=== PATIENT | female | born 1995 | race Caucasian/White ===

== ENCOUNTER 2022-06-03 08:25 | Outpatient (RCR) | payer OTHER, SELFPAY ==
[2022-05-14 12:02] VITALS: BP 102/60; PULSE 84
[2022-05-21 09:35] VITALS: BP 134/69; PULSE 94
[2022-05-28 14:03] VITALS: BP 130/64; PULSE 92
[2022-06-03 11:48] VITALS: BP 114/48; PULSE 90
== END 2022-07-12 14:51 | disposition home or self-care (01) ==
LOC: ANHOBOP 08:25
PROVIDERS: PCP Physician Assistant; Visit Provider Obstetrics & Gynecology
DX: O16.3 Unspecified maternal hypertension, third trimester (principal); Z3A.32 32 weeks gestation of pregnancy
CPT/HCPCS: 59025

== ENCOUNTER 2022-06-10 10:19 | Outpatient (CLI) | payer OTHER, SELFPAY ==
[2022-06-10 10:34] VITALS: BP 130/69; PULSE 96
[2022-06-10 10:46] VITALS: BP 115/61; PULSE 90
[2022-06-10 10:53] LABS: Basophils Percent Auto 0.2 % (0.2-1.2); Eosinophils Absolute Auto 0.1 K/mm3 (0-0.3); Eosinophils Percent Auto 0.6 % (0-4.4); Hematocrit 33.8 % (37.0-47.0); Hemoglobin 10.9 g/dL (12.0-15.0); Immature Granulocyte Absolute 0.05 K/mm3 (0.00-0.031); Immature Granulocyte Percent A 0.5 % (0-0.5); Lymphocytes Absolute Auto 2.01 K/mm3 (0.9-3.2); Mean Corpuscular HGB Conc 32.2 g/dl (32-36); Mean Corpuscular Hemoglobin 28.1 pg (26-34); Mean Corpuscular Volume 87.1 fl (80-100); Mean Platelet Volume 10.4 fl (7.4-10.4); Monocytes Absolute Auto 0.6 K/mm3 (0.1-0.6); Monocytes Percent Auto 5.8 % (2.6-8.5); Neutrophils Absolute Auto 7.3 K/mm3 (1.3-6.7); Neutrophils Percent Auto 72.9 % (45.5-73.1); Platelet Count Result 232 k/mm3 (150-375); Red Blood Count 3.88 M/mm3 (4.2-5.4); Red Cell Distribution Width 14.1 % (11.5-14.5)
[2022-06-10 11:02] LABS: Alanine Aminotransferase 15 U/L (6-35); Albumin Level 3.4 g/dL (3.5-5.1); Alkaline Phosphatase 106 U/L (38-126); Anion Gap 6 mmol/L (8-16); Aspartate Amino Transferase 15 U/L (14-36); Bilirubin,Total 0.3 mg/dL (0.2-1.3); Blood Urea Nitrogen 7 mg/dL (7-17); Calcium 8.7 mg/dL (8.4-10.2); Carbon Dioxide 23 mmol/L (22-30); Chloride 106 mmol/L (98-107); Estimated Glomerular Filt Rate > 60; Glucose 109 mg/dL (65-110); Potassium 3.8 mmol/L (3.4-5.0); Sodium 135 mmol/L (137-145); Uric Acid 5.3 mg/dL (2.5-7.5)
[2022-06-10 11:32] LABS: Appearance Urine Clear (Clear); Bilirubin Urine Negative (Negative); Color Urine Yellow (Yellow); Glucose Urine UA Negative (Negative); Ketones Urine Negative (Negative); Leukocyte Esterase Ur Negative LEU/UL (NEGATIVE); Nitrate Urine Negative (Negative); Protein Urine Negative (Negative); Specific Grav Ur 1.015 (1.001-1.035); Urobilinogen Urine 0.2 mg/dL (<2.0)
[2022-06-10 11:36] LABS: Creatinine Urine 45.4 mg/dL; Total Protein Urine Random 10 mg/dL; Ur Ttl Prot Creatinine Ratio 0.22 mg/mg (0-0.20)
[2022-06-10 11:40] LABS: RBC Urine 0-2 /hpf (0-2); Squamous Epithelial Cell Urine Occasional /hpf (Few); WBC Urine 0-3 /hpf (0-3)
[2022-06-10 11:47] LABS: Add Urine Microscopic? YES; Blood Urine Trace-Intact (Negative)
[2022-06-10 12:02] VITALS: BP 115/61; PULSE 96
[2022-06-10 12:12] VITALS: BP 130/69; PULSE 96
--- NOTE | 2022-06-10 12:31 | PC.NURSE ---
1019-Pt presented to L&D stating she had an episode yesterday that lasted a few seconds of seeing spots and another episode this morning. Pt states she has chtn. Orders received to draw [facility] labs and obtain nst.may discharge home if labs normal,bp wnl, nst reactive.
--- NOTE | 2022-06-10 18:17 | PM.OBTRLD ---
OB - Triage/Final Diagnosis Visit Information Date of evaluation: 06/10/22 Reason for evaluation: other ( headache) Comments/Additional reasons for admission: I have assessed the risk for this patient, Luther Sawyer, and determined that she would benefit from observation care. Evaluation Laboratory results: Laboratory Tests 06/10/22 06/10/22 06/10/22 10:43 10:43 10:43 WBC 10.0 RBC 3.88 L Hgb 10.9 L Hct 33.8 L MCV 87.1 MCH 28.1 MCHC 32.2 RDW 14.1 Plt Count 232 MPV 10.4 Immature Gran % (Auto) 0.5 Neut % (Auto) 72.9 Lymph % (Auto) 20.0 [place] % (Auto) 5.8 Eos % (Auto) 0.6 Baso % (Auto) 0.2 Lymph # (Auto) 2.01 [place] # (Auto) 0.6 Eos # (Auto) 0.1 Baso # (Auto) 0.0 Abs Immat Gran (auto) 0.05 H Absolute Neuts (auto) 7.3 H Absolute Nucleated RBC 0.0 Nucleated RBC % 0.0 Sodium Potassium Chloride Carbon Dioxide Anion Gap BUN Creatinine Estim Creat Clear Calc Estimated GFR Glucose Uric Acid Calcium Total Bilirubin AST ALT Alkaline Phosphatase Total Protein Albumin Urine Color Yellow Urine Appearance Clear Urine pH 7.0 Ur Specific [place] 1.015 Urine Protein Negative Urine Glucose (UA) Negative Urine Ketones Negative Ur Blood (Man) Trace-intact Urine Nitrate Negative Urine Bilirubin Negative Urine Urobilinogen 0.2 Ur Leukocyte Esterase Negative Urine RBC 0-2 Urine WBC 0-3 Ur Squamous Epith Cells Occasional U Random Total Protein 10 Urine Creatinine 45.4 Protein/Creat Ratio 2 0.22 H 06/10/22 10:43 WBC RBC Hgb Hct MCV MCH MCHC RDW Plt Count MPV Immature Gran % (Auto) Neut % (Auto) Lymph % (Auto) [place] % (Auto) Eos % (Auto) Baso % (Auto) Lymph # (Auto) [place] # (Auto) Eos # (Auto) Baso # (Auto) Abs Immat Gran (auto) Absolute Neuts (auto) Absolute Nucleated RBC Nucleated RBC % Sodium 135 L Potassium 3.8 Chloride 106 Carbon Dioxide 23 Anion Gap 6 L BUN 7 Creatinine 0.60 L Estim Creat Clear Calc Not Reportable Estimated GFR > 60 Glucose 109 Uric Acid 5.3 Calcium 8.7 Total Bilirubin 0.3 AST 15 ALT 15 Alkaline Phosphatase 106 Total Protein 6.0 L Albumin 3.4 L Urine Color Urine Appearance Urine pH Ur Specific [place] Urine Protein Urine Glucose (UA) Urine Ketones Ur Blood (Man) Urine Nitrate Urine Bilirubin Urine Urobilinogen Ur Leukocyte Esterase Urine RBC Urine WBC Ur Squamous Epith Cells U Random Total Protein Urine Creatinine Protein/Creat Ratio 2 Vital signs: Vital Signs - 24 hr 06/10/22 10:34 06/10/22 10:46 06/10/22 12:02 Pulse Rate 96 90 96 Blood Pressure 130/69 115/61 Blood Pressure [Left Arm] 115/61 06/10/22 12:12 Pulse Rate 96 Blood Pressure Blood Pressure [Left Arm] 130/69
== END 2022-06-10 12:12 | disposition home or self-care (01) ==
LOC: ANHOBOP 10:22 → ANHLDR 10:24
PROVIDERS: Obstetrics & Gynecology; PCP Physician Assistant; Visit Provider Obstetrics & Gynecology
DX: O13.9 Gestational [pregnancy-induced] hypertension without significant proteinuria, unspecified trimester (principal); Z3A.00 Weeks of gestation of pregnancy not specified
CPT/HCPCS: 36415; 59025; 80053; 81001; 82570; 84156; 84550; 85025; 87086; 87088; 99199

== ENCOUNTER 2022-06-18 15:47 | Inpatient (IN) | payer OTHER, SELFPAY ==
[2022-06-18] VITALS (24 sets, daily range): BP systolic 102–142; BP diastolic 51–72; PULSE 81–99; RESP 18; TEMP 36.4–36.6; BMI 51.2
--- NOTE | 2022-06-18 16:07 | LDADM ---
This patient, Luther Sawyer, was admitted to Labor/Delivery/Recovery 108 on 06/18/22 at 15:47. Plans for labor, pain management and were discussed with patient. Patient/family oriented to hospital policies and general routines including ID bracelet, bed and alarms, visiting hours, pain management, procedures, bathroom and other care routines, personal items, smoking policy, room service/diet and guest tray routines, security routines, and visiting hours. Patient/Family are encouraged to report perceived risks to care and to ask questions if they do not understand what they are told or what they should do. See OBIX for further documentation.
[2022-06-18 16:27] LABS: Basophils Percent Auto 0.1 % (0.2-1.2); Eosinophils Absolute Auto 0.1 K/mm3 (0-0.3); Eosinophils Percent Auto 0.7 % (0-4.4); Hematocrit 37.3 % (37.0-47.0); Hemoglobin 12.5 g/dL (12.0-15.0); Immature Granulocyte Absolute 0.05 K/mm3 (0.00-0.031); Immature Granulocyte Percent A 0.5 % (0-0.5); Lymphocytes Absolute Auto 1.98 K/mm3 (0.9-3.2); Lymphocytes Percent Auto 18.9 % (18.3-44.2); Mean Corpuscular HGB Conc 33.5 g/dl (32-36); Mean Corpuscular Hemoglobin 28.2 pg (26-34); Mean Corpuscular Volume 84.2 fl (80-100); Mean Platelet Volume 10.9 fl (7.4-10.4); Monocytes Absolute Auto 0.7 K/mm3 (0.1-0.6); Monocytes Percent Auto 6.4 % (2.6-8.5); Neutrophils Absolute Auto 7.7 K/mm3 (1.3-6.7); Neutrophils Percent Auto 73.4 % (45.5-73.1); Platelet Count Result 262 k/mm3 (150-375); Red Blood Count 4.43 M/mm3 (4.2-5.4); Red Cell Distribution Width 14.2 % (11.5-14.5); White Blood Count 10.5 K/mm3 (4.5-10.0)
[2022-06-18 16:44] LABS: Alanine Aminotransferase 15 U/L (6-35); Albumin Level 4.2 g/dL (3.5-5.1); Alkaline Phosphatase 126 U/L (38-126); Anion Gap 8 mmol/L (8-16); Aspartate Amino Transferase 25 U/L (14-36); Bilirubin,Total 0.5 mg/dL (0.2-1.3); Blood Urea Nitrogen 9 mg/dL (7-17); Carbon Dioxide 23 mmol/L (22-30); Chloride 106 mmol/L (98-107); Estimated CRCL calculation 150 ml/min; Estimated Glomerular Filt Rate > 60; Glucose 100 mg/dL (65-110); Potassium 4.3 mmol/L (3.4-5.0); Sodium 137 mmol/L (137-145); Uric Acid 5.1 mg/dL (2.5-7.5)
[2022-06-18] MEDS: DINOPROSTONE 10 MG VAG INSERT VAGINAL (17:09)
--- NOTE | 2022-06-18 17:18 | WPDANESEPP ---
Anes - Eval Pre Procedure Procedure: Labor Epidural Date/Time: 06/18/22 17:18 Pre Op Diagnosis: iol Patient Data Age: 27 Gender: F Height: 1.57 m Weight: 127 kg Last Vital Signs Temp 36.6 C 06/18/22 17:13 Pulse 88 06/18/22 17:16 Resp 18 06/18/22 17:13 BP 126/53 L 06/18/22 17:16 O2 Del Method Room Air 06/18/22 16:06 Allergies Allergy/AdvReac Type Severity Reaction Status Date / Time No Known Allergies Allergy Verified 06/17/22 14:55 Home Medications Medication Instructions Recorded Confirmed Type labetalol 200 mg tablet 100 mg PO Q12H 05/14/22 06/18/22 History vit no.95-ferrous 1 tablet PO DAILY 05/14/22 06/18/22 History fumarate 28 mg-folic acid 800 mcg tablet () Laboratory Tests 06/18/22 06/18/22 06/18/22 16:02 16:02 16:02 WBC 10.5 K/mm3 H K/mm3 (4.5-10.0) RBC 4.43 M/mm3 M/mm3 (4.2-5.4) Hgb 12.5 g/dL g/dL (12.0-15.0) Hct 37.3 % % (37.0-47.0) MCV 84.2 fl fl (80-100) MCH 28.2 pg pg (26-34) MCHC 33.5 g/dl g/dl (32-36) RDW 14.2 % % (11.5-14.5) Plt Count 262 k/mm3 k/mm3 (150-375) MPV 10.9 fl H fl (7.4-10.4) Immature Gran % (Auto) 0.5 % % (0-0.5) Neut % (Auto) 73.4 % H % (45.5-73.1) Lymph % (Auto) 18.9 % % (18.3-44.2) [place] % (Auto) 6.4 % % (2.6-8.5) Eos % (Auto) 0.7 % % (0-4.4) Baso % (Auto) 0.1 % L % (0.2-1.2) Lymph # (Auto) 1.98 K/mm3 K/mm3 (0.9-3.2) [place] # (Auto) 0.7 K/mm3 H K/mm3 (0.1-0.6) Eos # (Auto) 0.1 K/mm3 K/mm3 (0-0.3) Baso # (Auto) 0.0 K/mm3 K/mm3 (0.0-0.1) Abs Immat Gran (auto) 0.05 K/mm3 H K/mm3 (0.00-0.031) Absolute Neuts (auto) 7.7 K/mm3 H K/mm3 (1.3-6.7) Absolute Nucleated RBC 0.0 K/mm3 K/mm3 (0.0-0.012) Nucleated RBC % 0.0 % % (0.0-0.2) Sodium 137 mmol/L mmol/L (137-145) Potassium 4.3 mmol/L mmol/L (3.4-5.0) Chloride 106 mmol/L mmol/L (98-107) Carbon Dioxide 23 mmol/L mmol/L (22-30) Anion Gap 8 mmol/L mmol/L (8-16) BUN 9 mg/dL mg/dL (7-17) Creatinine 0.60 mg/dL L mg/dL (0.7-1.0) Estim Creat Clear Calc 150 ml/min ml/min Estimated GFR > 60 (59 - ) Glucose 100 mg/dL mg/dL (65-110) Uric Acid Cancelled 5.1 mg/dL mg/dL (2.5-7.5) Calcium 9.0 mg/dL mg/dL (8.4-10.2) Total Bilirubin 0.5 mg/dL mg/dL (0.2-1.3) AST 25 U/L U/L (14-36) ALT 15 U/L U/L (6-35) Alkaline Phosphatase 126 U/L U/L (38-126) Total Protein 8.0 g/dL g/dL (6.3-8.2) Albumin 4.2 g/dL g/dL (3.5-5.1) RPR 06/18/22 16:02 WBC RBC Hgb Hct MCV MCH MCHC RDW Plt Count MPV Immature Gran % (Auto) Neut % (Auto) Lymph % (Auto) [place] % (Auto) Eos % (Auto) Baso % (Auto) Lymph # (Auto) [place] # (Auto) Eos # (Auto) Baso # (Auto) Abs Immat Gran (auto) Absolute Neuts (auto) Absolute Nucleated RBC Nucleated RBC % Sodium Potassium Chloride Carbon Dioxide Anion Gap BUN Creatinine Estim Creat Clear Calc Estimated GFR Glucose Uric Acid Calcium Total Bilirubin AST ALT Alkaline Phosphatase Total Protein Albumin RPR Pending Patient hx anesthesia problems: none Family hx anesthesia problems: none Results Review: All pre-operative results and documents have been reviewed as part of the pre-operative evaluation. [facility] Past Medical History Medical History (Updated 06/18/22 @ 17:19 by Sadie Lutz CRNA) Hypertension
[2022-06-18] MEDS: LABETALOL HCL 100 MG TABLET PO (20:03)
[2022-06-18] MEDS: LACTATED RINGERS 1,000 ML 125 ML IV CONT (22:37)
--- NOTE | 2022-06-18 23:30 | WPDOBADMIT ---
Obstetrics - Admit Note Admission Note: record reviewed. Additions to the history and/or subsequent changes in the physical findings follow. 27 y/o at 37 4/7 weeks with chronic HTN, on labetalol 100 mg po bid. She has had elevated bp in office, but no suggestion of superimposed preeclampsia. No headaches, visual change, RUQ or midepigastric pain. GBS unknown, has not resulted yet. AVSS NST reactive TOCO: contractions irregularly ABD soft, nontender, gravid, vertex EXT nontender Cervix FT/50/-2 per RN. A: IUP at term with CHTN, worsening bp control. P: We reviewed expectant management vs induction of labor. Reviewed risks, benefits, alternatives in detail. She desires induction of labor. Cervidil has been placed. Plan is for oxytocin to follow. Anticipate .
[2022-06-18] MEDS: AMPICILLIN 2 GM/NS 100 ML 2 GM/100 ML BAG IVPB (23:47)
[2022-06-19] VITALS (153 sets, daily range): BP systolic 61–157; BP diastolic 39–134; PULSE 65–103; RESP 14–16; TEMP 36.1–36.9; O2SAT 75–100
[2022-06-19] MEDS: fentaNYL CITRATE INJ (*CRX) 100 MCG/2 ML VIAL 50 MCG IV PUSH (01:00)
[2022-06-19] MEDS: AMPICILLIN 1 GM/NS 50 ML 1 GM/50 ML BAG IVPB ×3 (03:49→11:49)
[2022-06-19] MEDS: LACTATED RINGERS 1,000 ML 125 ML IV CONT (06:35)
[2022-06-19] MEDS: OXYTOCIN 30 UNITS/NS 500 ML 30 UNITS/500 ML BAG IV CONT (08:15)
--- NOTE | 2022-06-19 08:55 | PM.OBPNLAB ---
Pain Control Date/time seen: 06/19/22 08:55 Comfortable with epidural. Cervidil has been removed. AVSS NST reactiive TOCO: contractions irregularly ABD soft, nontender, gravid, vertex EXT nontender Cervix /-2. AROM with clear fluid. IUPC placed. A: IUP at term. CHTN. P: Oxytocin. Anticipate
[2022-06-19 09:21] LABS: Rapid Plasma Reagin Non-Reactive (NonReactive)
--- NOTE | 2022-06-19 12:02 | PM.OBPNLAB ---
Pain Control Date/time seen: 06/19/22 12:02 Comfortable with epidural. AVSS NST reactive TOCO: contractions every 2-5 min Cervix 5/50/-1 Continue labor.
--- NOTE | 2022-06-19 15:18 | PM.OBPRVD ---
OB - Delivery Note Procedure Delivery date: 06/19/22 Procedure: Induction of labor with Events: Chronic Hypertension Induction method: Per Cervidil Protocol Delivery augmentation: Rupture of Membranes and Pitocin Delivery monitor: External FHT, External Uterine and Internal Uterine Route of delivery: Laceration Description: None Specimen: Yes (cord blood, placenta) Quantitative Blood Loss (ml): 45 Anesthesia type: Epidural Disposition: PACU Complications: None Narrative: 27 y/o at 37 4/7 weeks gestation who presented to the hospital for induction of labor for CHTN and worsening bp control. Cervidil was placed overnight, then withdrawn the next morning. Oxytocin was administered intravenously. Amniotomy was performed with return of clear fluid. She received an epidural for pain control. Her labor progressed and her cervix dilated completely. She pushed with good effort and delivered the 's head to the perineum, followed by the body. The nose and mouth were bulb suctioned. After a delay, the cord was clamped and cut. The was handed off the field. Cord blood was collected. The placenta delivered spontaneously and was grossly normal in appearance. The usual 3 vessel cord was noted. There were no lacerations. Needle and instrument counts were correct. The patient was taken to recovery room in stable condition. The infant went to the nursery in stable condition. I was present and scrubbed for the entire delivery. [place] Baby Date of : 06/19/22 Time of : 15:05 Weeks of gestation at delivery: 37 gender: Female Weight (pounds): 7 Weight (ounces): 1 presentation: vertex position: Right Occiput Anterior Placenta delivery description: Spontaneous and Normal Configuration Cord Vessel Description: 3 Vessels and Delayed Cord Clamping score one minute: 6 score five minutes: 8
--- NOTE | 2022-06-19 15:22 | PM.OBDSVD ---
DS: Admitting Diagnosis Discharge Date 06/20/22 Admitting Diagnosis IUP at 37 4/7 weeks [place] DS: Discharge Diagnosis Discharge Diagnosis (1) Chronic hypertension affecting : Code(s): O10.919 - Unspecified pre-existing hypertension complicating , unspecified trimester Status: Acute (2) (normal spontaneous vaginal delivery): Code(s): O80 - Encounter for full-term uncomplicated delivery Status: Acute OB - DS: Summary OB Procedures : NST and PIH Mgmt OB Procedures Intrapartum: Spontaneous Vag Delivery OB Procedures: : None Time Spent with Patient Time attestation: Total time spent providing and/or coordinating discharge services: DS: Data Data Completed and Pending Labs on day of discharge: Labs from last 24 hours 06/18/22 06/18/22 06/18/22 16:02 16:02 16:02 WBC RBC Hgb Hct MCV MCH MCHC RDW Plt Count MPV Immature Gran % (Auto) Neut % (Auto) Lymph % (Auto) [place] % (Auto) Eos % (Auto) Baso % (Auto) Lymph # (Auto) [place] # (Auto) Eos # (Auto) Baso # (Auto) Abs Immat Gran (auto) Absolute Neuts (auto) Absolute Nucleated RBC Nucleated RBC % Sodium 137 Potassium 4.3 Chloride 106 Carbon Dioxide 23 Anion Gap 8 BUN 9 Creatinine 0.60 L Estim Creat Clear Calc 150 Estimated GFR > 60 Glucose 100 Uric Acid 5.1 Calcium 9.0 Total Bilirubin 0.5 AST 25 ALT 15 Alkaline Phosphatase 126 Total Protein 8.0 Albumin 4.2 RPR Non-reactive Blood Type O Positive Antibody Screen Negative 06/18/22 06/18/22 16:02 16:02 WBC 10.5 H RBC 4.43 Hgb 12.5 Hct 37.3 MCV 84.2 MCH 28.2 MCHC 33.5 RDW 14.2 Plt Count 262 MPV 10.9 H Immature Gran % (Auto) 0.5 Neut % (Auto) 73.4 H Lymph % (Auto) 18.9 [place] % (Auto) 6.4 Eos % (Auto) 0.7 Baso % (Auto) 0.1 L Lymph # (Auto) 1.98 [place] # (Auto) 0.7 H Eos # (Auto) 0.1 Baso # (Auto) 0.0 Abs Immat Gran (auto) 0.05 H Absolute Neuts (auto) 7.7 H Absolute Nucleated RBC 0.0 Nucleated RBC % 0.0 Sodium Potassium Chloride Carbon Dioxide Anion Gap BUN Creatinine Estim Creat Clear Calc Estimated GFR Glucose Uric Acid Cancelled Calcium Total Bilirubin AST ALT Alkaline Phosphatase Total Protein Albumin RPR Blood Type Antibody Screen Discharge Plan Discharge Attending physician on discharge: Pramod Yancey Discharging Clinician: Pramod Yancey Patient Disposition: Home, Self-Care Activity: pelvic rest Diet: regular Discharge Instructions: Call or return if temperature above 100.4? F, increased abdominal pain, increased vaginal bleeding or any new problems. Stand Alone Forms: General Discharge Information Follow-up/Referrals: Pramod Yancey MD [Physician] - 6 Weeks Discharge Medications: New ibuprofen 600 mg tablet 600 mg PO Q6H PRN (Reason: cramps) Qty: 30 0RF Continued labetalol 200 mg Tablet 100 mg PO Q12H PNV cmb#95-ferrous fumarate-FA [] 28 mg iron- 800 mcg Tablet 1 tablet PO DAILY Date of admission: 06/18/22 15:47 Primary Care Provider: Xochilt,Nicole Admitting Provider: Pramod Yancey Attending physician on admission: Pramod Yancey Condition: Stable
[2022-06-19] MEDS: OXYTOCIN 30 UNITS/NS 500 ML 30 UNITS/500 ML BAG 125 UNITS IV CONT (15:37)
[2022-06-19] MEDS: IBUPROFEN 600 MG TABLET PO (16:39)
--- NOTE | 2022-06-19 17:02 | PC.NURSE ---
Report given to MARY JO Pisano on floor.
[2022-06-19] MEDS: BENZOCAINE 20% AER SPR (*SP) 56 GM CAN 1 SPRAY TOPICAL (17:08)
[2022-06-19] MEDS: WITCH HAZEL 40 PADS 1 PAD TOPICAL (17:08)
--- NOTE | 2022-06-19 17:56 | OBPPTRN ---
1738-Patient transferred to post room #285 via wheelchair. Support person present. Oriented to unit, room, information board, rooming in, admission packet and security measures. Patient verbalizes understanding.
[2022-06-19] MEDS: ACETAMINOPHEN 325 MG TABLET 650 MG PO (19:42)
[2022-06-19] MEDS: LABETALOL HCL 100 MG TABLET PO (19:42)
[2022-06-20] MEDS: IBUPROFEN 600 MG TABLET PO ×3 (00:34→15:14)
[2022-06-20 05:31] LABS: Hematocrit 32.4 % (37.0-47.0)
--- NOTE | 2022-06-20 07:15 | PC.NURSE ---
PT introductions made and plan of care discussed per post , pain management, breast feeding, daily care activities and pending discharge to home. PT and spouse both recipients of such instructions and no barriers to learning identified at this time. PT received such instructions this shift via one to one discussion, mom baby care guide and demonstrations. PT verbalized understanding of such care.
[2022-06-20 08:10] VITALS: BP 138/76; PULSE 88; RESP 16; TEMP 37.1; O2SAT 96
[2022-06-20] MEDS: ACETAMINOPHEN 325 MG TABLET 650 MG PO ×2 (09:07→15:14)
[2022-06-20] MEDS: DOCUSATE SODIUM 100 MG CAPSULE PO ×2 (09:08→15:13)
[2022-06-20 09:09] VITALS: PULSE 84
[2022-06-20] MEDS: LABETALOL HCL 100 MG TABLET PO (09:09)
[2022-06-20] MEDS: LANOLIN (LANSINOH) 7.5 GM CREAM 1 APPLIC TOPICAL (09:11)
[2022-06-20 09:15] VITALS: PULSE 84; RESP 16; O2SAT 96
[2022-06-20] MEDS: MULTIVIT/MIN/PREN/FOL AC/IRON TABLET 1 TAB PO (09:15)
[2022-06-20 11:53] VITALS: BP 141/82; PULSE 88; RESP 18; TEMP 36.3; O2SAT 99
--- NOTE | 2022-06-20 11:54 | PM.OBPNVD ---
OB - PN: Subj Subjective Date/time seen: 06/20/22 11:54 Narrative: Pain OK. Would like to go home. OB - PN: Obj Data Labs CBC & Chem 7: 06/20/22 04:34 06/18/22 16:02 Labs: Laboratory Results - last 24 hr 06/20/22 04:34 Hgb 11.0 L Hct 32.4 L OB - PN A/P Plan Comments: A: PPD#1, doing well. P: Home to f/u 6 weeks. Exam Psych: Other: AVSS ABD soft, nontender, fundus firm EXT nontender
--- NOTE | 2022-06-20 16:32 | PC.NURSE ---
[id number] Introductions were made, then consulted with patient to assess needs related to . Primary RN Karol is working with patient on latching infant using football position and mother denies pain or any type of pinching or biting discomfort. Infant has a nice rounded cheek line and has suck/swallow ratios that are good, visualized and heard. Mother works well with her . Encouraged understanding of the benefits of skin to skin (unwrapping infant and placing vertically on her chest), responsive feeding and how to watch for early feeding signs, frequency of feeding on demand about every 8-12 times in 24 hours (every 2-3 hours), milk production, duration of feeding, signs of adequate intake/output and how to record on the feeding sheet. Reviewed positioning, supporting the breast, asymmetrical latch (off-center), and leading with the chin with a big open side gape. self detached after 10 min and nipple was slightly misshaped and was content and placed skin to skin on mom's chest between her breast. Nipple care reviewed with optimal latch and good positioning. Mother voiced understanding of responsive feedings, stimulating with skin to skin, hand expressed colostrum, touch, talking to infant to encourage if it has been 2 -3 hours since the start of the last , to call if infant does not latch or there is discomfort with . Reported to primary RN
--- NOTE | 2022-06-20 16:44 | PC.NURSE ---
[id number] Introductions were made, then consulted with patient to assess needs related to . Mother led the conversation with her experience feeding her so far. Mother works well with her . Encouraged understanding of the benefits of skin to skin (unwrapping and placing vertically on her chest), responsive feeding and how to watch for early feeding signs, frequency of feeding on demand about every 8-12 times in 24 hours (every 2-3 hours), milk production, duration of feeding, signs of adequate intake/output and how to record on the feeding sheet. Reviewed positioning and ear, shoulder, hip alignment, supporting the breast, asymmetrical latch (off-center), and leading with the chin with a big open side gape. Infant latched optimally to the right breast in cross cradle position. Education given to mother of how to visualize suck/swallow ratios and drinking at the breast. was able to maintain latch without discomfort to mother. Nipple care reviewed with optimal latch and good positioning. Mother is feeding appropriately for growth of infant and understands stimulating infant to eat if needed. has had appropriate feedings in the last 24 hours meets the outcomes for weight, output and jaundice at this time. Mother states she is confident to continue effectively her infant at home or when to call for assistance. Reinforced understanding of milk production, transition of milk, signs of adequate intake, prevention/relief of engorgement, responsive after visualizing feeding cues, the different methods of stimulating to breastfeed 2-3 hours after the start of the last feeding, community resources, medication information reviewed per [employer] and when to call a provider using the resource of the mom and baby guide/[facility] website. Mother voiced understanding of the education shared. Reported to the primary RN.
--- NOTE | 2022-06-20 17:40 | WPDANLDPN2 ---
Anes-Prog Note L&D Date/Time: 06/20/22 17:40 Comfortable throughout: labor and delivery Neuraxial method: epidural Epidural/Spinal procedure site: clean & non-tender Neuro status: Neuro function grossly intact. Cardiovascular status: normal Respiratory status: normal Airway patency: baseline Mental status: baseline Post-Op hydration status: normal Vital Signs: Last Vital Signs Temp 36.3 C L 06/20/22 11:53 Pulse 88 06/20/22 11:53 Resp 18 06/20/22 11:53 BP 141/82 H 06/20/22 11:53 Pulse Ox 99 06/20/22 11:53 O2 Del Method Room Air 06/20/22 09:15 Pain score (VAS): 0 I/O: Intake & Output 06/20/22 06/20/22 06/20/22 07:59 15:59 23:59 Intake Total 300 Balance 300 Patient feedback: Patient satisfied with anesthetic care.
--- NOTE | 2022-06-20 18:30 | PC.NURSE ---
PT received discharge instructions per protocol and verbalized understanding of such care.
--- NOTE | 2022-06-20 19:08 | PC.NURSE ---
PT discharged to home ambulatory accompanied by spouse and and taken to waiting car. Follow up appts confirmed
[2022-06-21 08:53] VITALS: BP 126/75; PULSE 77; RESP 18; TEMP 36.9; O2SAT 99
== END 2022-06-20 19:08 | disposition home or self-care (01) | DRG 807 ==
LOC: ANHLDR 06-19 15:24 → ANHOB2 06-19 17:41
PROVIDERS: Admitting Provider Obstetrics & Gynecology; PCP Physician Assistant; Visit Provider Obstetrics & Gynecology
DX: O10.92 Unspecified pre-existing hypertension complicating childbirth (principal); Z37.0 Single live birth; Z3A.37 37 weeks gestation of pregnancy; O36.8330 Maternal care for abnormalities of the fetal heart rate or rhythm, third trimester, not applicable or unspecified
CPT/HCPCS: 36415; 80053; 84550; 85014; 85018; 85025; 86592; 86850; 86900; 86901; A9270; J0290; J2590; J2795; J3010; J7120